=== PATIENT | female | born 1985 | race Hispanic/Latino ===

== ENCOUNTER 2018-09-14 13:08 | Emergency (ER) | payer OTHER ==
[~2018-09-14] VITALS: Ht 170.2 cm; Wt 88.6 kg
[2018-09-14] MEDS ORDERED: PREN1CHW PO (13:13)
[2018-09-14 13:36] LABS: BASO # 0.1 10^3/uL (0.0-0.2); BASO % 0.4 % (0.0-1.0); EOS % 0.3 % (0.0-3.0); HEMATOCRIT 35.8 % (36.0-47.0); LYMPH # 1.6 10^3/uL (1.5-4.5); LYMPH % 11.5 % (24.0-44.0); MEAN CORPUSCULAR HEMOGLOBIN 30.6 pg (27.0-33.0); MEAN CORPUSCULAR HGB CONC 33.5 g/dl (32.0-36.5); MEAN CORPUSCULAR VOLUME 91.3 fl (80.0-96.0); MONO # 0.6 10^3/uL (0.0-0.8); MONO % 4.2 % (0.0-5.0); NEUTROPHILS # 11.6 10^3/uL (1.8-7.7); PLATELET COUNT, AUTOMATED 252 10^3/uL (150-450); RED BLOOD COUNT 3.92 10^6/uL (4.00-5.40)
--- NOTE | 2018-09-14 14:26 | REP ---
Clinical: Vaginal bleeding. Comparison: None . Findings: Examination demonstrates a single live intrauterine in cephalic presentation. motion is identified by technologist. Placenta is noted anterior and grade I without evidence for placenta previa or abruption. Anhydramnios is appreciated with only very minimal amniotic fluid identified. Cervix measures 3.9 cm in length and appears closed. Gestational age by LMP 15 weeks 2 days with MAXWELL 03/06/2019 . Gestational age by current measurements 16 weeks 5 days with MAXWELL 02/24/2019 . FHR equals 165 beats per minute. Anatomical examination is severely limited due to early age. However, bilateral choroid plexus cysts noted. Impression: 1. Severely decreased amniotic fluid volume consistent with anhydramnios. 2. Cord plexus cysts noted. Electronically Signed by Perry Barcenas MD 09/14/2018 02:17 P
[2018-09-14 14:42] LABS: BLOOD UREA NITROGEN 6 MG/DL (7-18); CALCIUM LEVEL 9.1 MG/DL (8.5-10.1); CARBON DIOXIDE LEVEL 24 MEQ/L (21-32); CHLORIDE LEVEL 107 MEQ/L (98-107); CREATININE FOR GFR 0.51 MG/DL (0.55-1.30); GLOMERULAR FILTRATION RATE > 60.0 (>60); GLUCOSE, FASTING 78 MG/DL (70-100); HCG, SERUM QUANTITATIVE 22342 MIU/ML; POTASSIUM SERUM 4.1 MEQ/L (3.5-5.1); SODIUM LEVEL 138 MEQ/L (136-145)
[2018-09-14 15:50] VITALS: BP 114/72
== END 2018-09-14 15:51 | disposition home or self-care (01) ==
LOC: M ED 13:08
DX: O41.8X20 Other specified disorders of amniotic fluid and membranes, second trimester, not applicable or unspecified (principal); Z3A.15 15 weeks gestation of pregnancy